=== PATIENT | female | born 1995 | race Caucasian/White ===

== ENCOUNTER 2019-01-10 18:31 | Emergency (ER) | payer OTHER ==
[~2019-01-10] VITALS: Ht 170.2 cm; Wt 77.1 kg
[2019-01-10] MEDS ORDERED: VITATRUE COMBO1 EACH (20:17)
== END 2019-01-11 00:04 | disposition home or self-care (01) ==
LOC: ER 18:31
DX: Z34.01 Encounter for supervision of normal first pregnancy, first trimester (principal); R10.2 Pelvic and perineal pain

== ENCOUNTER 2019-06-04 12:03 | Inpatient (IN) | payer OTHER ==
[~2019-06-04] VITALS: Ht 172.7 cm; Wt 87.1 kg
[~2019-06-04 12:03] MED LIST: VITATRUE COMBO1 EACH
== END 2019-06-16 13:42 | disposition home or self-care (01) | DRG 807 ==
LOC: OB/GYN 06-14 03:02 → LDR 06-14 03:02 → OB/GYN 06-14 08:27
PROVIDERS: ADMIT Specialist
PROC: 10E0XZZ Delivery of Products of Conception, External Approach (ICD-10-PCS; principal; 2019-06-14)
PROC: 4A1HXFZ Monitoring of Products of Conception, Cardiac Rhythm, External Approach (ICD-10-PCS; 2019-06-14)
PROC: 3E033VJ Introduction of Other Hormone into Peripheral Vein, Percutaneous Approach (ICD-10-PCS; 2019-06-14)
DX: O80 Encounter for full-term uncomplicated delivery (principal); Z37.0 Single live birth; Z3A.38 38 weeks gestation of pregnancy

== ENCOUNTER 2019-06-13 11:31 | Outpatient (CLI) | payer OTHER | END 2019-06-13 13:47 | disposition home or self-care (01) | LOC: OBS/DEL 11:31 | DX: O47.1 False labor at or after 37 completed weeks of gestation (principal) ==

== ENCOUNTER 2021-10-24 00:40 | Outpatient (CLI) | payer OTHER | END 2021-10-24 14:42 | disposition home or self-care (01) | LOC: OBS/DEL 00:40 | PROVIDERS: ATTEND Specialist | DX: O26.813 Pregnancy related exhaustion and fatigue, third trimester (principal); Z3A.36 36 weeks gestation of pregnancy; R50.9 Fever, unspecified ==

== ENCOUNTER 2021-11-16 02:18 | Inpatient (IN) | payer OTHER ==
[~2021-11-16] VITALS: Ht 172.7 cm; Wt 88.0 kg
== END 2021-11-18 16:26 | disposition home or self-care (01) | DRG 798 ==
LOC: LDR 02:18 → OB/GYN 02:18
PROVIDERS: ADMIT Specialist; ATTEND Specialist
PROC: 10E0XZZ Delivery of Products of Conception, External Approach (ICD-10-PCS; principal; 2021-11-16)
PROC: 4A1HXCZ Monitoring of Products of Conception, Cardiac Rate, External Approach (ICD-10-PCS; 2021-11-16)
PROC: 0UB70ZZ Excision of Bilateral Fallopian Tubes, Open Approach (ICD-10-PCS; 2021-11-17)
DX: O80 Encounter for full-term uncomplicated delivery (principal); Z37.0 Single live birth; Z3A.39 39 weeks gestation of pregnancy; Z20.822 Contact with and (suspected) exposure to COVID-19; Z30.2 Encounter for sterilization